=== PATIENT | male | born 1955 | race Caucasian/White ===

== ENCOUNTER → 2016-09-05 | Outpatient (CLI) | payer OTHER ==
[~2016-09-05] MED LIST: ACETAMINOPHEN325 M1 PO; ACTOS15 MG PO; ALLOPURINOL100 MG PO; ATIVAN1 MG PO; AVAPRO150 MG PO; BYSTOLIC10 MG PO; CEFADROXIL500 MG PO; CELLCEPT250 MG PO; COLCHICINE0.6 MG PO; GLIPIZIDE5 MG PO; GLUCOTROL5 MG PO; IRBESARTAN150 MG PO; IRON SUPPLEMEN325 MG PO; JANUVIA100 MG PO; LIPITOR20 MG PO; MAG-OX400 M1 PO; MAG-OXIDE400 MG PO; MAGNESIUM400 MG PO; MULTIVITAMIN1 EAC2 PO; MYCOPHENOLATE250 MG PO; NORVASC2.5 MG PO; PRILOSEC20 MG PO; PROGRAF0.5 MG PO; PROGRAF1 MG PO; PROTONIX40 MG PO; SENSIPAR30 MG PO; SYNTHROID50 MCG PO; TACROLIMUS ANH0.5 MG PO; TOPROL XL50 MG PO; TOPROL XL6.25 MG PO; TYLENOL REGULA325 MG PO; ULORIC40 MG PO; ULTRAM50 MG PO; Ultram PO; VITAMIN D2000 UNIT PO; VITAMIN D31000 UNIT PO; ZEMPLAR1 MCG PO; ZESTRIL,PRINIVI10 MG PO; ZOFRAN4 MG PO; ZYLOPRIM100 MG PO; predniSONE PO
== END | disposition home or self-care (01) ==
LOC: CDC 09:51
DX: R94.31 Abnormal electrocardiogram [ECG] [EKG] (principal)
CPT/HCPCS: 93000

== ENCOUNTER 2016-09-11 16:33 | Emergency (ER) | payer OTHER ==
[~2016-09-11] VITALS: Ht 175.3 cm; Wt 83.4 kg
[~2016-09-11 16:33] MED LIST changes: +JANUVIA25 M1 PO
[2016-09-11 18:19] LABS: HEMATOCRIT 26.6 % (38.0-50.0); MCH 29.4 PG (29.0-34.0); MCHC 34.2 G/DL (30.0-36.0); MCV 85.8 FL (86-99); MEAN PLAT.VOLUME 9.8 uM^3 (9.0-12.4); PLATELET COUNT 93 K/uL (156-360); RBC DIS.WIDTH-CV 13.3 % (11.8-14.6); RBC DIS.WIDTH-SD 40.7 % (39-53); WHITE BLOOD COUNT 3.9 K/uL (4.1-10.2)
[2016-09-11 18:21] LABS: ADD MIUA? YES; BILIRUBIN NEGATIVE; BLOOD SMALL; COLOR AMBER ((YELLOW)); GLUCOSE (STRIP) >=500; KETONES NEGATIVE; LEUKOCYTES NEGATIVE; NITRITE NEGATIVE; PROTEIN (STRIP) 100; SPECIFIC GRAVITY 1.012 (1.000-1.030)
[2016-09-11 18:27] LABS: CHLORIDE 105 mEq/L (99-109); POTASSIUM 3.9 mEq/L (3.7-5.4); SODIUM 134 mEq/L (136-147)
[2016-09-11 18:30] LABS: GLUCOSE 329 mg/dL (70-99)
[2016-09-11 18:31] LABS: ANION GAP 12 MEQ/L (2-14)
[2016-09-11 18:32] LABS: TOTAL BILIRUBIN 3.3 mg/dL (0.0-1.0)
[2016-09-11 18:33] LABS: ALKALINE PHOSPHATASE 103 IU/L (3-129)
[2016-09-11 18:34] LABS: GFR ESTIMATE (CALCULATED) 15 mL/min/
[2016-09-11 18:35] LABS: DIRECT BILIRUBIN 2.5 mg/dL (0.0-0.3); UREA NITROGEN (BUN) 39 mg/dL (9-23)
[2016-09-11 18:37] LABS: LIPASE 65 U/L (1.0-51.0)
[2016-09-11 18:43] LABS: BACTERIA 1+ /HPF; CASTS NONE SEEN /LPF; CRYSTALS NONE SEEN; EPITHELIAL CELLS RARE /HPF; MUCUS NONE SEEN /LPF; RED BLOOD CELLS 0-5 /HPF (0-5); UCUL ADDED? NO; WHITE BLOOD CELLS RARE /HPF (0-5)
[2016-09-11] MEDS ORDERED: ROXICODONE5 MG PO (22:02)
[2016-09-11 22:15] VITALS: BP 144/91
== END 2016-09-11 22:17 | disposition home or self-care (01) ==
LOC: EME 16:33
PROVIDERS: Emergency Medicine
DX: E86.0 Dehydration (principal); R19.7 Diarrhea, unspecified; Z94.0 Kidney transplant status; I10 Essential (primary) hypertension; E11.9 Type 2 diabetes mellitus without complications; Z87.891 Personal history of nicotine dependence
CPT/HCPCS: 74176; 80048; 80076; 81003; 83690; 85027; 99281; 99285; J2270; J2405; J7030

== ENCOUNTER 2016-09-13 09:10 | Emergency (ER) | payer OTHER ==
[~2016-09-13] VITALS: Ht 175.3 cm; Wt 83.0 kg
[~2016-09-13 09:10] MED LIST changes: +ROXICODONE5 MG PO
[2016-09-13 10:28] LABS: HEMATOCRIT 23.6 % (38.0-50.0); MCHC 33.5 G/DL (30.0-36.0); MCV 86.8 FL (86-99); RBC DIS.WIDTH-CV 13.7 % (11.8-14.6); RBC DIS.WIDTH-SD 42.5 % (39-53); RED BLOOD COUNT 2.72 M/uL (4.00-5.50); WHITE BLOOD COUNT 2.4 K/uL (4.1-10.2)
[2016-09-13 10:44] LABS: CHLORIDE 102 mEq/L (99-109); POTASSIUM 4.4 mEq/L (3.7-5.4); SODIUM 132 mEq/L (136-147)
[2016-09-13 10:46] LABS: GLUCOSE 218 mg/dL (70-99)
[2016-09-13 10:47] LABS: ANION GAP 11 MEQ/L (2-14)
[2016-09-13 10:50] LABS: ALKALINE PHOSPHATASE 68 IU/L (3-129); GFR ESTIMATE (CALCULATED) 14 mL/min/; TOTAL BILIRUBIN 4.4 mg/dL (0.0-1.0)
[2016-09-13 10:51] LABS: UREA NITROGEN (BUN) 56 mg/dL (9-23)
[2016-09-13 11:10] LABS: ADD MIUA? YES; BILIRUBIN NEGATIVE; BLOOD MODERATE; COLOR AMBER ((YELLOW)); GLUCOSE (STRIP) >=500; KETONES NEGATIVE; LEUKOCYTES NEGATIVE; NITRITE NEGATIVE; PROTEIN (STRIP) 100; SPECIFIC GRAVITY 1.009 (1.000-1.030)
[2016-09-13 11:14] LABS: MEAN PLAT.VOLUME 10.2 uM^3 (9.0-12.4); PLAT.SUFFICIENCY DECREASED
[2016-09-13 11:20] LABS: BACTERIA RARE /HPF; BUDDING YEAST 2+; EPITHELIAL CELLS NONE SEEN /HPF; MUCUS TRACE /LPF; UCUL ADDED? NO; UNCLASSIFIED CASTS 0-5 /LPF; WHITE BLOOD CELLS 0-5 /HPF (0-5)
[2016-09-13 11:32] LABS: PLATELET COUNT 59 K/uL (156-360)
[2016-09-13] MEDS ORDERED: GLIPIZIDE5 MG PO (14:22)
[2016-09-13] MEDS ORDERED: ASPIR 8181 M1 PO (14:26)
[2016-09-13] MEDS ORDERED: NABI650T PO (14:27)
[2016-09-13] MEDS ORDERED: MAGNESIUM OXID500 MG PO (14:28)
[2016-09-13] MEDS ORDERED: PROGRAF0.5 MG PO (14:30)
[2016-09-13] MEDS ORDERED: OMEPRAZOLE20 MG PO (14:32)
[2016-09-13] MEDS ORDERED: VITAMIN D31000 UNIT PO (14:33)
[2016-09-13] MEDS ORDERED: CALCITRIOL0.25 MCG PO ×2 (14:34→14:35)
[2016-09-13] MEDS ORDERED: PROCARDIA XL60 MG PO (14:35)
[2016-09-13] MEDS ORDERED: CELLCEPT250 MG PO (14:36)
[2016-09-13 17:04] VITALS: BP 136/79
== END 2016-09-13 17:06 | disposition left against medical advice (07) ==
LOC: EME 09:10
PROVIDERS: Emergency Medicine
DX: I13.2 Hypertensive heart and chronic kidney disease with heart failure and with stage 5 chronic kidney disease, or end stage renal disease (principal); N18.6 End stage renal disease; I50.9 Heart failure, unspecified; T86.12 Kidney transplant failure; E11.22 Type 2 diabetes mellitus with diabetic chronic kidney disease; F41.9 Anxiety disorder, unspecified; Z87.891 Personal history of nicotine dependence; Z94.0 Kidney transplant status; Z79.84 Long term (current) use of oral hypoglycemic drugs
CPT/HCPCS: 71250; 74176; 74181; 80053; 81003; 83605; 85027; 86900; 86901; 87040; 87077; 87186; 87801; 99281; 99285; J2405; J3010; J7030

== ENCOUNTER 2016-09-23 05:18 | Day surgery (SDC) | payer OTHER ==
[~2016-09-23] VITALS: Ht 175.3 cm; Wt 82.1 kg
[~2016-09-23 05:18] MED LIST changes: +ASPIR 8181 M1 PO; +CALCITRIOL0.25 MCG PO; +LEVAQUIN500 MG PO; +MAGNESIUM OXID500 MG PO; +NABI650T PO; +OMEPRAZOLE20 MG PO; +OXYCODONE HCL5 M1 PO; +PROCARDIA XL60 MG PO
[2016-09-23 07:02] LABS: MCV 90.9 FL (86-99); MEAN PLAT.VOLUME 10.2 uM^3 (9.0-12.4); PLATELET COUNT 165 K/uL (156-360); RBC DIS.WIDTH-CV 13.6 % (11.8-14.6); RBC DIS.WIDTH-SD 44.3 % (39-53); RED BLOOD COUNT 2.97 M/uL (4.00-5.50); WHITE BLOOD COUNT 2.9 K/uL (4.1-10.2)
[2016-09-23 07:16] VITALS: BP 120/72
[2016-09-23 07:16] LABS: ANION GAP 10 MEQ/L (2-14); CHLORIDE 106 MEQ/L (99-109); POTASSIUM 4.2 MEQ/L (3.7-5.4); SAMPLE HEMOLYSIS CHECK 0; SAMPLE ICTERIC CHECK 0; SAMPLE LIPEMIA CHECK 1; SODIUM 137 MEQ/L (136-147)
[2016-09-23 07:22] LABS: GFR ESTIMATE (CALCULATED) 21 mL/min/; GLUCOSE 227 mg/dL (70-99); UREA NITROGEN (BUN) 31 mg/dL (9-23)
[2016-09-23 07:34] LABS: METH RESISTANT S AUREUS PCR NEGATIVE (NEGATIVE)
[2016-09-23 07:35] LABS: PROBE CHECK PASS; SPECIMEN PROCESSING CONTROL PASS
[2016-09-23 10:15] VITALS: BP 122/67
[2016-09-23 11:08] VITALS: BP 120/69
== END 2016-09-23 11:15 | disposition home or self-care (01) ==
LOC: SDC 05:18
PROVIDERS: Surgery
DX: I12.9 Hypertensive chronic kidney disease with stage 1 through stage 4 chronic kidney disease, or unspecified chronic kidney disease (principal); N18.9 Chronic kidney disease, unspecified; E11.22 Type 2 diabetes mellitus with diabetic chronic kidney disease; E07.9 Disorder of thyroid, unspecified; E78.5 Hyperlipidemia, unspecified; Z94.0 Kidney transplant status; Z79.84 Long term (current) use of oral hypoglycemic drugs; Z79.82 Long term (current) use of aspirin; Z87.891 Personal history of nicotine dependence; Z84.1 Family history of disorders of kidney and ureter; Z82.3 Family history of stroke; Z82.49 Family history of ischemic heart disease and other diseases of the circulatory system; Z83.3 Family history of diabetes mellitus
CPT/HCPCS: 80048; 82948; 85027; 87641; J0690; J1644; J2250; J2720; J3010

== ENCOUNTER 2017-04-01 06:54 | Day surgery (SDC) | payer OTHER ==
[~2017-04-01] VITALS: Ht 175.3 cm; Wt 86.0 kg
[~2017-04-01 06:54] MED LIST changes: +RENA-VITE RX T1 EACH PO
== END 2017-04-01 09:36 | disposition home or self-care (01) ==
LOC: CATH 06:54
PROVIDERS: Surgery
PROC: B51W1ZZ Fluoroscopy of Dialysis Shunt/Fistula using Low Osmolar Contrast (ICD-10-PCS; principal; 2017-04-01)
PROC: 057Y3ZZ Dilation of Upper Vein, Percutaneous Approach (ICD-10-PCS; principal; 2017-04-01)
PROC: 05HY33Z Insertion of Infusion Device into Upper Vein, Percutaneous Approach (ICD-10-PCS; principal; 2017-04-01)
PROC: 3E03317 Introduction of Other Thrombolytic into Peripheral Vein, Percutaneous Approach (ICD-10-PCS; principal; 2017-04-01)
DX: T82.858A Stenosis of other vascular prosthetic devices, implants and grafts, initial encounter (principal); Y83.2 Surgical operation with anastomosis, bypass or graft as the cause of abnormal reaction of the patient, or of later complication, without mention of misadventure at the time of the procedure; N18.6 End stage renal disease; Z99.2 Dependence on renal dialysis
CPT/HCPCS: 82948; 87641; C1725; C1769; C1894; J1644; J2250; J3010

== ENCOUNTER 2017-09-04 07:02 | Day surgery (SDC) | payer OTHER ==
[~2017-09-04] VITALS: Ht 175.3 cm; Wt 80.7 kg
== END 2017-09-04 10:10 | disposition home or self-care (01) ==
LOC: CATH 07:02
PROVIDERS: Surgery
DX: T82.858A Stenosis of other vascular prosthetic devices, implants and grafts, initial encounter (principal); Y83.2 Surgical operation with anastomosis, bypass or graft as the cause of abnormal reaction of the patient, or of later complication, without mention of misadventure at the time of the procedure; N18.6 End stage renal disease; Z99.2 Dependence on renal dialysis
CPT/HCPCS: 82948; 87641; C1725; C1769; C1894; J2250; J3010

== ENCOUNTER 2017-09-16 06:52 | Day surgery (SDC) | payer OTHER ==
[~2017-09-16] VITALS: Ht 175.3 cm; Wt 80.7 kg
== END 2017-09-16 10:11 | disposition home or self-care (01) ==
LOC: CATH 06:52
PROVIDERS: Surgery
PROC: 057Y3ZZ Dilation of Upper Vein, Percutaneous Approach (ICD-10-PCS; principal; 2017-09-16)
PROC: B51W1ZZ Fluoroscopy of Dialysis Shunt/Fistula using Low Osmolar Contrast (ICD-10-PCS; principal; 2017-09-16)
DX: T82.858A Stenosis of other vascular prosthetic devices, implants and grafts, initial encounter (principal); N18.6 End stage renal disease; Z99.2 Dependence on renal dialysis; Z79.84 Long term (current) use of oral hypoglycemic drugs
CPT/HCPCS: 82948; 87641; C1725; C1769; C1894; J1644; J2250; J3010